=== PATIENT | female | born 1940 | race African-American/Black ===

== ENCOUNTER 2018-06-23 07:50 | Inpatient (IN) ==
--- NOTE | 2018-06-23 08:18 | Diag Imaging Result Doc PS360 ---
EXAM: CT HEAD W/O CONTRAST HISTORY: AMS, confusion TECHNIQUE: CT head without contrast COMPARISON: None. FINDINGS: No parenchymal hemorrhage. No epidural or subdural hematoma. No subarachnoid hemorrhage. There are only mild chronic microvascular ischemic changes. No mass identified on this noncontrasted exam. No hydrocephalus. No sinus opacification. IMPRESSION: No hemorrhage. Mild chronic microvascular ischemic changes. This exam was performed using automated exposure control, adjustment of mA or kV according to patient size, and/or use of iterative reconstruction technique. Electronically signed by Yakov Colbert 06/23/2018 8:15 AM
--- NOTE | 2018-06-23 08:40 | PROVIDER DOCUMENTATION ---
HPI-General Adult - General Chief Complaint: Altered Mental Status Stated Complaint: AMS Time Seen by Provider: 06/23/18 08:22 Source: EMS Unable to obtain history due to:: altered Allergies/Adverse Reactions: Patient Allergies Allergy/AdvReac Type Severity Reaction Status Date / Time No Known Allergies Allergy Verified 06/23/18 09:33 Home Medications: Home Medication List Medication Instructions Recorded Confirmed Last Taken Type Amlodipine [Norvasc] 10 mg PO DAILY 06/24/18 06/24/18 Unknown History Apixaban [Eliquis] 5 mg PO BID 06/24/18 06/24/18 Unknown History Carvedilol [Coreg] 6.25 mg PO BID 06/24/18 06/24/18 Unknown History Hydralazine HCl 25 mg PO BID 06/24/18 06/24/18 Unknown History Insulin Glargine,Hum.rec.anlog 18 unit SQ DAILY 06/24/18 06/24/18 Unknown History [Lantus Solostar] Levetiracetam 500 mg PO BID 06/24/18 06/24/18 Unknown History Losartan Potassium 100 mg PO DAILY 06/24/18 06/24/18 Unknown History Metformin HCl [Metformin HCl ER] 500 mg PO TID 06/24/18 06/24/18 Unknown History - History of Present Illness -Gen Adult Location of Pain/Injury: reports: none Pain Radiation: reports: no radiation Severity: reports: moderate Onset/Duration: reports: this morning Timing: reports: still present, improving Context/Activities at Onset: reports: none Modifying Factors: improves with: nothing Similar Symptoms Previously?: No Recently seen or treated by another doctor?: No - Diabetes Related Context Context: reports: unresponsive. denies: low blood sugar Review of Systems - Adult - REVIEW OF SYSTEMS - ADULT ROS:: unobtainable per condition Physical Exam-General - PHYSICAL EXAM-ADULT Initial Vital Signs Reviewed: Yes - CONSTITUTIONAL General Appearance: slow to respond - HEAD, EARS, NOSE, MOUTH & THROAT HENMT: normocephalic/atraumatic - NECK Neck: non-tender - RESPIRATORY Respiratory: chest non-tender, lungs clear - CARDIOVASCULAR Cardiovascular: normal peripheral pulses, regular rate, rhythm, no JVD - GASTROINTESTINAL (ABDOMEN) Abdominal Exam: normal bowel sounds, non tender, soft - LYMPHATIC Lymphatic: no adenopathy - MUSCULOSKELETAL Back Exam: normal inspection, no CVA tenderness, no vertebral tenderness Extremity: normal range of motion, non-tender - SKIN Integumentary: normal color - NEUROLOGIC Neurologic: other (moved all extremities, responsive to pain stimuli) Progress - PLAN OF CARE/RESULTS Progress/Plan/Lab Results: Vital Signs - 8 hr 06/23/18 08:18 Temperature 98.4 F Pulse Rate 105 H Respiratory Rate 20 Blood Pressure 147/97 O2 Sat by Pulse Oximetry 94 L Orders Category Date Time Status Cardiac Monitoring DIRECTED Care 06/23/18 08:24 Active Finger Stick Blood Sugar (ED) DIRECTED Care 06/23/18 08:24 Active Misc. NRSG Communication Order DIRECTED Care 06/23/18 08:24 Active Oxygen Therapy- ED Nursing DIRECTED Care 06/23/18 08:24 Active Saline Loc NOW Care 06/23/18 08:24 Active CHEST-PORTABLE [RAD] Stat Exams 06/23/18 08:[address] HEAD W/O CONTRAST [CT] Stat Exams 06/23/18 08:02 Completed CBC WITH ELECTRONIC DIFF [HEME] Stat Lab 06/23/18 08:24 Uncollected COMPREHENSIVE METABOLIC PANEL [CHEM] Stat Lab 06/23/18 08:24 Uncollected PROTIME WITH INR [COAG] Stat Lab 06/23/18 08:24 Uncollected PTT [COAG] Stat Lab 06/23/18 08:24 Uncollected TROPONIN T Stat Lab 06/23/18 08:24 Uncollected TSH Stat Lab 06/23/18 08:25 Uncollected URINALYSIS W/POSS RFLX CULT [URINALYSIS] Stat Lab 06/23/18 08:24 Uncollected URINE DRUG SCREEN Stat Lab 06/23/18 08:25 Uncollected EKG [EKG] Stat Ther 06/23/18 08:24 Ordered Result Diagrams: 06/24/18 07:15 06/24/18 07:15 Departure - Departure DIAGNOSIS: Seizure Disposition: ADMITTED INPATIENT 09 Condition: Fair - Critical Care Note This patient required my direct & personal management of CC.: No Attestation - Physician/ CATIE Attestation Patient care was provided by Advanced Practice Provider:: No The physician spent face to face time with patient:: Yes Advanced Practice Provider documentation review:: Supervising physician onsite and consulted in the evaluation and care of this patient. The physician did have a face to face encounter with the patient.
--- NOTE | 2018-06-23 08:50 | Diag Imaging Result Doc PS360 ---
EXAM: CHEST-PORTABLE HISTORY: stroke like symptoms TECHNIQUE: Chest single view COMPARISON: None. FINDINGS: The lungs are well expanded. The heart is enlarged. There is central vascular distention. The entire left lung base is not included although there is a small left effusion. IMPRESSION: Cardiomegaly with mild pulmonary edema and a small left pleural effusion. Electronically signed by Yakov Colbert 06/23/2018 8:48 AM
--- NOTE | 2018-06-23 08:59 | EKG Report ---
Test Performed on : 06/23/2018 08:49:09 AM Test Reason : Tomeka HARRISON Blood Pressure : / mmHG Vent. Rate : 101 BPM Atrial Rate : 101 BPM P-R Int : 196 ms QRS Dur : 092 ms QT Int : 360 ms P-R-T Axes : 091 -56 089 degrees QTc Int : 466 ms Sinus tachycardia. Pulmonary disease pattern Incomplete right bundle branch block Left anterior fascicular block Moderate voltage criteria for LVH, may be normal variant Abnormal ECG No previous ECGs available Unconfirmed Result
[2018-06-23 09:37] LABS: BASO# 0.01 X1000 (0.0-0.2); BASO% 0.1 % (0.0-0.8); EOS# 0.02 X1000 (0.0-0.7); EOS% 0.3 % (0.0-10.0); HEMATOCRIT 35.1 % (37.0-47.0); HEMOGLOBIN 11.5 g/dL (12.0-16.0); IMM GRAN# 0.05 X1000 (0.0-0.04); IMM GRAN% 0.6 % (0.0-0.5); LYMPH# 1.33 X1000 (1.2-3.4); LYMPH% 17.1 % (20.5-51.1); MCHC 32.8 g/dL (33-37); MCV 85.4 FL (81-99); MONO# 0.08 X1000 (0.11-0.59); MPV 8.8 FL (7.4-10.4); NEUT# 6.27 X1000 (1.4-6.5); NEUT% 80.9 % (42.2-75.2); PLT 318 X1000 (130-400); RBC 4.11 XMIL (4.2-5.4); RDW 12.6 % (11.5-14.5); WBC 7.76 X1000 (4.8-10.8)
[2018-06-23] MEDS ORDERED: KEPPRA 500 MG in NS 100 ML IV ONE ×2 (09:38→12:24)
[2018-06-23 09:41] LABS: INR 1.02; PROTIME 14.2 Seconds (11.0-16.0)
[2018-06-23 09:42] LABS: PTT 33.1 Seconds (22.3-41.8)
[2018-06-23 10:09] LABS: URINE SOURCE CATH
[2018-06-23 10:10] LABS: ALBUMIN 4.3 g/dL (3.5-5.0); CALCIUM 8.8 mg/dL (8.8-10.2); CREATININE 1.2 mg/dL (0.5-0.9); TOTAL BILIRUBIN 0.43 mg/dL (0.20-1.00); TOTAL PROTEIN 8.6 g/dL (6.3-8.3)
[2018-06-23 10:19] LABS: BILIRUBIN URINE NEGATIVE (NEGATIVE); BLOOD URINE SMALL (NEGATIVE); COLOR STRAW; GLUCOSE URINE 1000 mg/dL (NEGATIVE); KETONE URINE 10 mg/dL (NEGATIVE); LEUKOCYTES URINE NEGATIVE (NEGATIVE); NITRITE URINE NEGATIVE (NEGATIVE); PROTEIN URINE 200 mg/dL (NEGATIVE); SP GRAVITY URINE 1.003; TURBIDITY URINE CLEAR (CLEAR); UR EPITHELIAL CELLS <10 /HPF (<10); URINE BACTERIA NEGATIVE /HPF; URINE RBC <10 /HPF (<10); URINE WBC <10 /HPF (<10); UROBILINOGEN URINE NORMAL (NORMAL)
--- NOTE | 2018-06-23 10:28 | ED EKG INTERP ---
This chart was entered by Ruthann Jarrett Scribe, acting as scribe for Cecilia Lopez MD. EKG Interpretation - EKG Time of EKG reading by physician:: 08:49 EKG Read and Signed by:: Cecilia Lopez EKG Interpretation (*Must complete 3 of following elements*): Abnormal Rate: 101 Rhythm: sinus tachycardia QRS: RBB (incomplete), LVH, other (pulmonary disease pattern/LAFB) NH Interval: normal ST Wave: normal Prior EKG Comparison: no prior EKG Attestation - Physician/ CATIE Attestation Patient care was provided by Advanced Practice Provider:: No The physician spent face to face time with patient:: Yes Advanced Practice Provider documentation review:: Supervising physician onsite and consulted in the evaluation and care of this patient. The physician did have a face to face encounter with the patient. This chart was documented by the indicated scribe, (Ruthann Jarrett Scribe) and accurately reflects the services I performed and decisions made by me, Cecilia Lopez MD, as attested by the provider's signature.
[2018-06-23 11:14] LABS: UR AMPHETAMINES QUAL NONE DETECTED (NONE DETECT); UR BARBITUATES QUAL NONE DETECTED (NONE DETECT); UR BENZODIAZEPIN QUAL NONE DETECTED (NONE DETECT); UR CANNABINOIDS QUAL NONE DETECTED (NONE DETECT); UR COCAINE QUAL NONE DETECTED (NONE DETECT); UR METHADONE QUAL NONE DETECTED (NONE DETECT); UR OPIATES QUAL NONE DETECTED (NONE DETECT); UR OXYCODONE QUAL NONE DETECTED (NONE DETECT); UR PCP QUAL NONE DETECTED (NONE DETECT)
[2018-06-23] MEDS ORDERED: ATIVAN IV PRN (12:25)
[2018-06-23] MEDS ORDERED: ZOFRAN IV ONE (13:06)
[2018-06-23] MEDS ORDERED: ZOFRAN IV PRN (13:15)
--- NOTE | 2018-06-23 14:08 | HISTORY AND PHYSICAL ---
PRIMARY CARE PROVIDER: Neal Comer from [place]. CHIEF COMPLAINT: Unresponsive, possible seizure. HISTORY OF PRESENT ILLNESS: Ms. Kenyetta Nguyen is an 78-year-old - [place] female who has been staying at [facility] with family. Apparently, her nephew is also a patient here, so she is here from [place]. Apparently she has a history of tonic clonic seizures with the last one being about a year ago. Her sister is the person at the bedside providing information as the patient is still significantly postictal. Also history of hypertension, stroke , possible CHF, diabetes, and mild dementia. They said that last night they came in late, around 10 p.m. She was okay then, awake, but laying on the bed and was able to talk with no problems. She went to sleep sometime after 12 midnight. Around 6:30 this morning they woke up, she was in the bathroom, apparently she has been sitting on the commode for a good while. They went to check on her and she was nonverbal with her eyes open. She would not focus on speaker. She did have loss of bowel and bladder apparently. Ambulance was called, so she was brought here. There was no obvious witnessed seizures but she is also continuing to be nonverbal. Will make temporary eye contact but will not follow commands. She moves all extremities spontaneously and they all appear to be equal. Initial head CT was negative for any acute findings. Vital signs are stable. She has a little bit of high blood glucose. Urine drug screen is negative. We will admit her. She is supposed to be on Keppra. Her home medications have not been reconciled but she will be initiated on 1000 twice a day with some p.r.n. Ativan. We will transfer to the ICU for monitoring over night and seizure precautions. We will also get more imaging of her brain to make sure there is no acute strokes involved. PAST MEDICAL HISTORY: 1. Tonic clonic seizures with the last being a year ago, supposed to be on Keppra. 2. Hypertension. 3. CVA, uses a walker. 4. Possible congestive heart failure. 5. Diabetes mellitus type 2. 6. Mild dementia. SURGICAL HISTORY: None. SOCIAL HISTORY: Never smoked, no alcohol, no illicit drugs. Her niece lives with her at home in [place]. She has never had kids. She is . She has a nephew that is currently admitted here and this is the reason for being away from home. She uses a walker. FAMILY HISTORY: Mother had congestive heart failure. Father of old age. ALLERGIES: No known drug allergies. HOME MEDICATIONS: None listed. Family does not have any at the bedside, but she is supposed to be on Keppra. REVIEW OF SYSTEMS: Unable to obtain due to patient's status. PHYSICAL EXAMINATION: VITAL SIGNS: Temperature 98. Heart rate 98. Respiratory rate 20. Blood pressure 154/79. O2 saturation 99% on 3 liters nasal cannula. Height 5 feet 6 inches tall, 175 pounds with BMI 28.2. GENERAL: Ms. Kenyetta Nguyen is an 78-year-old -[place] female. Currently nonverbal, but has her eyes open and will not follow commands. HEENT: Atraumatic and normocephalic. Pupils are equal, round and reactive to light. Will not follow commands, so she will not perform extraocular movements. Mucous membranes are moist. NECK: Trachea midline. CARDIOVASCULAR: S1, S2, regular rate and rhythm. No rubs, gallops, or murmurs. No lower extremity edema. +2 dorsalis and radial pulses. Negative for JVD or carotid bruits. PULMONARY: Clear to auscultation with bilateral breath sounds. No accessory muscle use or work of breathing noted. GASTROINTESTINAL: Soft, nontender, nondistended. Positive bowel sounds x4. EXTREMITIES: She moves all extremities spontaneously, but not to command. It is difficult to say if they are completely equal, but they appear to be. NEUROLOGICAL: Nonverbal at this time, does not follow commands. Eyes are open , will only momentarily look at speaker, mostly keeps her eyes closed, will easily open them to verbal stimuli of name. SKIN: Warm, dry, and intact. LABORATORY DATA: White blood cells 7000, hemoglobin 11, hematocrit 35, platelet count 318. INR 1.02. PTT 33.1. Sodium 134, potassium 5, BUN 20, creatinine 1.2, glucose 221. Calcium 8.8, bilirubin 0.43, AST 17, ALT 11. Troponin less than 0.01. Albumin 4.3. TSH 1.85. Urinalysis: 200 protein, 1000 glucose, 10 ketones, small amount of blood in the urine. Urine drug screen is negative. IMAGIN. Head CT: No hemorrhage, mild chronic microvascular ischemic changes. 2. Chest x-ray: Cardiomegaly with mild pulmonary edema and a small left pleural effusion. 3. EKG: Sinus tachycardia with a ventricular rate of 101 and a QTC of 466. ASSESSMENT AND PLAN: 1. Seizure disorder with possible seizure this admit. Family thinks she takes her medication as prescribed. Apparently, she takes Keppra at home, dose is unknown. She has been started on 1000 mg twice a day IV, p.r.n. Ativan. She is still quite postictal, we will monitor in the ICU for seizures overnight. 2. History of CVA, we will do an MRI of the brain to make sure she does not have a new stroke. 3. Congestive heart failure. She has cardiomegaly and pulmonary edema on her chest x-ray. We will go ahead and get an echocardiogram. 4. Diabetes mellitus type 2. We will do pattern blood glucoses and sliding scale insulin. 5. Hypertension. Right now we will allow for some mild permissive hypertension. Her home medications have not been reconciled, but we may need to get something started if she starts getting too hypertensive. 6. Mild dementia. 7. Deep venous thrombosis prophylaxis with SCDs. Dictated by SELMA Christina for Willian Chand MD cc: SELMA Christina MD Neal Nahomi Patient seen and evaluated by me. She is presenting with seizures. I agree with the assessment and plan of the SELMA. Dr. Chand. [facility]
[2018-06-23] MEDS: NS 1,000 ML IV SCH (14:38)
--- NOTE | 2018-06-23 15:02 | Diag Imaging Result Doc PS360 ---
EXAM: MRA BRAIN W/O CONTRAST HISTORY: ams; seizures TECHNIQUE: MR angiography of the brain. MIP images obtained. COMPARISON: None. FINDINGS: MR angiography images of the [place] obtained. There is normal flow in each distal internal carotid artery. Normal filling of the anterior and middle cerebral arteries. Normal flow in the distal vertebral arteries and basilar artery. Normal flow within each posterior cerebral artery. No occlusion. No stenosis. No aneurysm. IMPRESSION: Normal MR angiography of the [place]. Electronically signed by Yakov Colbert 06/23/2018 2:59 PM
--- NOTE | 2018-06-23 15:15 | Diag Imaging Result Doc PS360 ---
EXAM: MRI BRAIN W/WO CONTRAST 06/23/2018 HISTORY: ams; seizures TECHNIQUE: T1 sagittal, axial and post gadolinium axial, T2, FLAIR, DWI axial and coronal gradient echo. COMMENT: There is mild periventricular white matter hyperintensity on T2 particularly in the occipital horns. There is no evidence of bleed or abnormal extra-axial fluid collection. There is no evidence of restricted diffusion. There is no evidence of abnormal gadolinium enhancement. IMPRESSION: No evidence of acute intracranial disease. Electronically signed by Cm Marroquin 06/23/2018 3:12 PM
[2018-06-23] MEDS: HUMULIN R SUBQ SCH ×2 (16:00→20:25)
--- NOTE | 2018-06-23 18:36 | Carotid Study ---
DATE: 06/23/2018 PROCEDURE: Carotid duplex study. REFERRING PHYSICIAN: SELMA Christina INTERPRETING PHYSICIAN: Dr. Mikey Wright. TECH: Jose. INDICATIONS: Altered mental status and seizures. NOTE: The exam was limited due to the patient being combative. OBSERVED DATA RIGHT LEFT Brachial Blood Pressure Carotid Pulse Bruits: Carotid/Sub DIAGRAM OF ULTRASOUND IMAGING R L RIGHT INT EXT INT EXT LEFT Santino (cm/s) Santino (cm/s) Subclavian 92/0 Subclavian 118/6 CCA Proximal 52/8 CCA Proximal 68/8 CCA Distal 49/0 CCA Distal 64/5 Bulb 46/10 Bulb 43/6 ICA Proximal Not recorded ICA Proximal 37/7 ICA Mid Not recorded ICA Mid 26/10 ICA Distal Not recorded ICA Distal Not recorded ECA Not recorded ECA 104/9 Vertebral Not recorded Vertebral 52/13 ICA/CCA Ratio ICA/CCA Ratio % Stenosis Unable to determine % Stenosis 0-39% FINDINGS: The right subclavian artery, common carotid artery, and carotid bulb did not appear to have any significant atherosclerotic disease. The left subclavian artery, common carotid artery, bulb, external carotid artery, and proximal to mid internal carotid artery also appeared to be without significant atherosclerotic disease. PHYSICIAN INTERPRETATION: This is a limited exam, but there is no obvious disease of the left carotid system. The right side really was not able to be examined. cc: MD Yesi Novak CRNP
[2018-06-23] MEDS: KEPPRA 1,000 MG in NS 100 ML IV SCH (20:25)
[2018-06-23 22:44] LABS: URINE SOURCE CATH
[2018-06-23 22:47] LABS: BILIRUBIN URINE NEGATIVE (NEGATIVE); BLOOD URINE SMALL (NEGATIVE); COLOR YELLOW; GLUCOSE URINE 500 mg/dL (NEGATIVE); KETONE URINE 10 mg/dL (NEGATIVE); LEUKOCYTES URINE NEGATIVE (NEGATIVE); NITRITE URINE NEGATIVE (NEGATIVE); PH URINE 6.5; PROTEIN URINE 200 mg/dL (NEGATIVE); SP GRAVITY URINE 1.011; TURBIDITY URINE CLEAR (CLEAR); UR EPITHELIAL CELLS <10 /HPF (<10); URINE BACTERIA NEGATIVE /HPF; URINE RBC <10 /HPF (<10); URINE WBC <10 /HPF (<10); UROBILINOGEN URINE NORMAL (NORMAL)
[2018-06-24] MEDS: NS 1,000 ML IV SCH ×2 (04:20→16:20)
[2018-06-24] MEDS: HUMULIN R SUBQ SCH ×4 (06:07→20:15)
--- NOTE | 2018-06-24 07:59 | EKG Report ---
Test Performed on : 06/24/2018 07:22:47 AM Test Reason : seizures Blood Pressure : / mmHG Vent. Rate : 082 BPM Atrial Rate : 082 BPM P-R Int : 170 ms QRS Dur : 086 ms QT Int : 406 ms P-R-T Axes : 071 -54 043 degrees QTc Int : 474 ms Normal sinus rhythm. Left anterior fascicular block Minimal voltage criteria for LVH, may be normal variant Abnormal ECG When compared with ECG of 23-JUN-2018 08:49, (Unconfirmed) T wave amplitude has decreased in Inferior leads Confirmed by Osman Brewster MD ([id number]) on 06/25/2018 7:08:47 AM
[2018-06-24] MEDS: KEPPRA 1,000 MG in NS 100 ML IV SCH ×2 (08:01→20:15)
[2018-06-24 08:21] LABS: BASO# 0.01 X1000 (0.0-0.2); BASO% 0.1 % (0.0-0.8); EOS# 0.02 X1000 (0.0-0.7); EOS% 0.3 % (0.0-10.0); HEMATOCRIT 33.4 % (37.0-47.0); HEMOGLOBIN 11.2 g/dL (12.0-16.0); IMM GRAN# 0.02 X1000 (0.0-0.04); IMM GRAN% 0.3 % (0.0-0.5); LYMPH# 1.57 X1000 (1.2-3.4); LYMPH% 19.8 % (20.5-51.1); MCH 28.8 PG (27-31); MCHC 33.5 g/dL (33-37); MCV 85.9 FL (81-99); MONO% 10.1 % (1.7-9.3); NEUT# 5.49 X1000 (1.4-6.5); NEUT% 69.4 % (42.2-75.2); PLT 289 X1000 (130-400); RBC 3.89 XMIL (4.2-5.4); RDW 12.6 % (11.5-14.5); WBC 7.91 X1000 (4.8-10.8)
[2018-06-24 08:37] LABS: HEMOGLOBIN A1C 9.7 % (4.8-6.0)
[2018-06-24 10:02] LABS: ALB/GLOB RATIO 1.3; ALBUMIN 3.9 g/dL (3.5-5.0); CALCIUM 8.8 mg/dL (8.8-10.2); CREATININE 1.3 mg/dL (0.5-0.9); MAGNESIUM 1.9 mg/dL (1.5-2.7); POTASSIUM 4.1 mmol/L (3.5-5.1); TOTAL BILIRUBIN 0.55 mg/dL (0.20-1.00)
[2018-06-24] MEDS ORDERED: SODIUM PHOSPHATE 30 MMOL in D5W 250 ML IV PRN (11:23)
[2018-06-24] MEDS ORDERED: HUMULIN R 100 UNIT in NS 99 ML IV SCH (11:23)
[2018-06-24] MEDS ORDERED: HUMULIN R IV ONE (11:23)
[2018-06-24] MEDS ORDERED: POTASSIUM CHLORIDE 20 MEQ/SWI 20 MEQ/100 ML IVPB IV PRN (11:23)
[2018-06-24] MEDS ORDERED: MAGNESIUM SULFATE 2 GM/S.W.I. 2 GM/50 ML IVPB IV PRN (11:23)
[2018-06-24] MEDS ORDERED: D5 NS + KCL 20 MEQ 1,000 ML IV SCH (11:23)
[2018-06-24] MEDS ORDERED: NS 1,000 ML IV SCH (11:23)
[2018-06-24] MEDS ORDERED: D50W SYRINGE IV PRN (11:23)
[2018-06-24] MEDS ORDERED: SODIUM BICARBONATE 8.4% 50 MEQ in D5W 250 ML IV PRN (11:23)
[2018-06-24] MEDS ORDERED: POTASSIUM CHLORIDE 40 MEQ/SWI 40 MEQ/100 ML IVPB IV PRN (11:23)
--- NOTE | 2018-06-24 11:37 | PROGRESS NOTE ---
DATE: 06/24/2018 SUBJECTIVE: Patient resting comfortably in bed. No recent seizure activity is reported. OBJECTIVE: Vital signs: Temperature 98.9 degrees, pulse 80, respiratory rate 16, blood pressure 139/85, oxygen saturation 100%. HEENT: Atraumatic, normocephalic. Cardiovascular: S1, S2. Respiratory: Occasional rhonchi noted. Abdomen: Soft, nontender. No masses felt. Extremities: No evidence of edema. Central nervous system: No obvious focal deficits noted. LABORATORY DATA: WBC 7.11, hematocrit 33.4, platelet count 289,000. Sodium 133, potassium 4.1, chloride 98, bicarb 24, BUN 21, creatinine 1.3. ASSESSMENT AND PLAN: 1. Seizure disorder. Continue current antiepileptic drugs, specifically Keppra, and also maintain patient on seizure precautions. 2. History of cerebrovascular accident. MRI of the brain does not show any evidence of any acute intracranial process. Will maintain patient on aspirin for secondary prevention. 3. Congestive heart failure. Chest x-ray shows evidence of cardiomegaly with mild pulmonary edema and also small left pleural effusion. Echocardiogram pending. Will maintain patient on diuretics as needed and monitor intakes and outputs, as well as daily weights. 4. Diabetes mellitus. Continue blood sugar monitor as well as sliding scale insulin. 5. Hypertension. Optimize blood pressure control. 6. Mild dementia. Aware. 7. Deep vein thrombosis prophylaxis. Sequential compression devices. cc: Willian Chand MD
--- NOTE | 2018-06-24 12:51 | CONSULTATION ---
DATE OF CONSULTATION: 06/24/2018 HISTORY OF PRESENT ILLNESS: Ms. Nguyen was reportedly found poorly responsive in the bathroom. She was brought to the hospital and seems to have recovered. This morning, she reports no recollection of the incident prompting her admission. She reports she feels recovered and back to baseline now. She denies headache. She reports having a single seizure episode approximately a year ago. She reports having workup then with no definite explanation determined for seizure. She believes that she was started on medicine for seizure control and that she takes that as directed with all current medicines supervised by sister at home. She reports no recent medication changes. DIAGNOSTIC STUDIES: Workup here includes lab showing negative urine drug screen , mild anemia, moderately elevated blood sugars. VITAL SIGNS: Vital sign record shows she is afebrile. Systolic blood pressures have ranged 110s to 160s. Heart rate has ranged 70s to 100s. PAST HISTORY: There is reported past history of hypertension, heart failure, diabetes mellitus, and possibly dementia. There is reported to be possible previous stroke. Ms. Nguyen told me she thinks she has been told that she had a stroke, but she does not report any prior event associated with transient or persistent focal neurologic deficit. She reports the single prior seizure episode was not associated with any focal neurologic feature. NEUROLOGIC EXAMINATION: On exam, she is awake, alert, attentive. She answered questions appropriately. She is partially oriented. Speech is not dysarthric. Language function is intact on brief bedside testing. Remote memory is fair. Head and neck are unremarkable. There is no meningismus. Visual marquez are full, tested grossly by confrontational finger counting. Extraocular movements are full. Facial motility is symmetric. Tongue is midline. Palate is midline. Strength is normal in the arms and legs. She did well on cerebellar testing in the limbs. There is no tremor. She reports diminished pinprick appreciation in a stocking pattern bilaterally. She reports good pinprick appreciation symmetrically over the palms. Reflexes are absent at the ankles, 1+ at the left knee, trace at the right knee, 1+ at the wrists. Plantar response is silent bilaterally. I did not test her gait. IMPRESSION: 1. Recent period of altered awareness with memory gap. Explanation is not certain. She might have had a seizure or this could have been other toxic/metabolic encephalopathy. She seems to be significantly improved now. 2. Reported past history of seizure. Her report is a single isolated seizure episode. The admission note indicates levetiracetam at home, but dose uncertain. She has received levetiracetam 1000 mg IV q.12 hours since admission. She received a single dose of lorazepam 1 mg overnight. 3. Reported baseline dementia. I did not test her cognitive function thoroughly today. 4. Clinical evidence of peripheral neuropathy, presumed diabetic neuropathy. 5. Reported history of stroke, but I do not find a definite deficit to attribute to prior stroke. RECOMMENDATIONS: I do not have any urgent suggestion. She seems clinically improved. With question of seizure, I will order EEG. Further plans will depend on that report and on her clinical course. I would continue current levetiracetam dose for now. If family provides information regarding prior dose, we can adjust to her preadmission dose. Thanks for asking Neurology to see Ms. Nguyen. cc: MD HERBIE Francis III
--- NOTE | 2018-06-24 21:34 | ECHO REPORT ---
ORDER DATE: 06/23/2018 INDICATION: Altered mental status, history of CHF. FINDINGS: 1. Right atrium appears normal in size at 3 cm. 2. Mild tricuspid regurgitation. RV systolic pressure of 51. 3. Normal RV size and systolic function. 4. Mild pulmonic insufficiency. 5. Normal left atrial size. 6. No mitral prolapse. Trace mitral regurgitation. 7. Normal LV size, end-diastolic dimension of 3.8 cm. Moderate left ventricular hypertrophy with a posterior and interventricular septal wall thickness 1.5 and 1.4 cm, respectively. Normal LV systolic function. Estimated EF is 65% to 70% with normal wall motion. 8. The aortic valve opens well. There is mild insufficiency. No stenosis. 9. The aorta appears normal in visualized segments. 10. No pericardial effusion seen. cc: MD Yesi Turner CRNP
[2018-06-25] MEDS: HUMULIN R SUBQ SCH ×4 (06:50→20:38)
[2018-06-25] MEDS: NS 1,000 ML IV SCH ×2 (08:23→20:39)
[2018-06-25] MEDS: KEPPRA 1,000 MG in NS 100 ML IV SCH ×2 (08:25→20:38)
[2018-06-25] MEDS: ASPIRIN EC PO SCH (08:30)
--- NOTE | 2018-06-25 11:19 | PROGRESS NOTE ---
DATE: 06/25/2018 Ms. Nguyen is awake and alert. She reports no more periods of altered awareness or memory gap. Her EEG showed generalized slowing, not very remarkable for age and no epileptiform discharge or other evidence of tendency to seizure. In light of her stable course and negative EEG, I would not make any changes at this time. She has tolerated levetiracetam 1000 mg IV q.12 hours since admission. I do not think we have documented that to be her preadmission dose, but it is a reasonable dose, well- tolerated here, and we can plan to discharge her on the same dose, levetiracetam 1000 mg b.i.d. by mouth. Thanks for asking Neurology to see Ms. Nguyen. I will be glad to see her again as an outpatient, if needed. cc: Jez Kellogg III, MD MTDD
--- NOTE | 2018-06-25 11:56 | EEG REPORT ---
DATE: 06/24/2018 COMMENT: This is a digitally recorded EEG done portably in the ICU on an 78-year-old patient with reported previous seizure, possible recent seizure. FINDINGS: During waking, medium amplitude 9 Hz posterior rhythm is present bilaterally, poorly sustained with uncertain reactivity to eye opening. Background contains abundant polymorphic and rhythmic theta frequencies across the frontal and central regions. There is occasional slowing into the delta range frontally while awake. Drowsing occurred briefly. Stage 2 sleep was not recorded. Hyperventilation was not done. Photic stimulation did not significantly alter the record. No definite epileptiform discharge was identified. INTERPRETATION: Abnormal electroencephalogram because of generalized slowing. CORRELATION: This is indicative of a diffuse encephalopathy and is nonspecific. The absence of epileptiform discharges on a single EEG does not exclude a clinical diagnosis of seizures. cc: Jez Kellogg III, MD
--- NOTE | 2018-06-25 12:40 | PROGRESS NOTE ---
DATE: 06/25/2018 SUBJECTIVE: The patient is awake, not in any obvious distress. OBJECTIVE: Vital signs: Temperature is 98 degrees, pulse 108, respiratory rate is 21, blood pressure is 151/86, oxygen saturation is 94%. HEENT: Atraumatic, normocephalic. Cardiovascular System: S1, S2. Respiratory System: Has evidence of good entry bilaterally. Abdomen: Soft. Nontender. No masses felt. Extremities: No evidence of edema. Central nervous system: No obvious focal deficits noted. LABORATORY DATA: Blood sugar is 449. ASSESSMENT AND PLAN: 1. Seizure disorder. Continue current antiepileptic regimen. Maintain patient on seizure precaution. Neurology is following. 2. History of cerebrovascular accident. MRI of the brain does not show any acute intracranial process. We will maintain patient on aspirin for secondary prevention. 3. Congestive heart failure. Stable. Use diuretics as needed. Monitor intakes and outputs, as well as daily weights. A 2D echo of the heart shows an estimated ejection fraction of about 65% to 70%. 4. Diabetes mellitus. Monitor blood sugar levels and maintain patient on sliding scale insulin. 5. Hypertension. Optimize blood pressure control. 6. Mild dementia. Aware. 7. Deep vein thrombosis (DVT) prophylaxis. SCD. cc: Willian Chand MD
[2018-06-26] MEDS: HUMULIN R SUBQ SCH ×6 (06:34→21:56)
[2018-06-26] MEDS: KEPPRA 1,000 MG in NS 100 ML IV SCH ×2 (08:01→21:56)
[2018-06-26] MEDS: ASPIRIN EC PO SCH (08:01)
[2018-06-26] MEDS: NS 1,000 ML IV SCH ×2 (10:15→21:56)
--- NOTE | 2018-06-26 11:36 | PROGRESS NOTE ---
DATE: 06/26/2018 Ms. Nguyen is awake, alert, attentive, cheerful, and appropriate. She has not had any further seizure or seizure-like behavior. I reviewed her history briefly at the bedside, and she does not have anything new to report today. No new suggestions from Neurology. Would continue current levetiracetam dose p.o. at discharge. I will be glad to see her as an outpatient if needed. Thanks for asking us to see Ms. Nguyen. cc: Jez Kellogg III, MD
--- NOTE | 2018-06-26 15:24 | PROGRESS NOTE ---
DATE: 06/26/2018 SUBJECTIVE: The patient is resting in bed. Not in any respiratory distress. OBJECTIVE: Vital signs: Temperature is 97.7, pulse 87, respiratory rate 19, blood pressure 141/87, oxygen saturation is 98%. HEENT: Normocephalic and atraumatic. Cardiovascular: S1, S2. Respiratory: Evidence of good air entry bilaterally. Abdomen: Soft, nontender. No masses felt. Extremities: No evidence of edema. Central nervous system: No obvious focal deficit noted. DIAGNOSTIC DATA: Blood sugar is 175. ASSESSMENT AND PLAN: 1. Seizure disorder. Continue current antiepileptic regimen. Maintain the patient on seizure precaution. Neurology is following. 2. History of cerebrovascular accident. Continue aspirin. 3. Congestive heart failure. Stable. Use diuretics as needed. Monitor I's and O's as well as daily weights. 4. Diabetes mellitus. Monitor blood sugar levels and maintain the patient on a sliding scale. 5. Hypertension. Optimize blood pressure control. 6. Mild dementia. Aware. 7. DVT prophylaxis with SCD. cc: Willian Chand MD
[2018-06-27] MEDS ORDERED: D50W SYRINGE ONE (03:31)
[2018-06-27] MEDS: NS 1,000 ML IV SCH (03:34)
[2018-06-27] MEDS ORDERED: D50W SYRINGE IV ONE ×2 (03:38→05:42)
[2018-06-27] MEDS ORDERED: D50W SYRINGE IV PRN (05:42)
[2018-06-27] MEDS: HUMULIN R SUBQ SCH ×2 (07:19→11:39)
[2018-06-27] MEDS: ASPIRIN EC PO SCH (08:34)
[2018-06-27] MEDS: KEPPRA 1,000 MG in NS 100 ML IV SCH (08:34)
--- NOTE | 2018-06-27 12:48 | DISCHARGE SUMMARY ---
ADMISSION DATE: 06/23/2018 DISCHARGE DATE: 06/27/2018 DISPOSITION: Home. FOLLOW UP: 1. PCP. 2. Dr. Kellogg. CONSULTATIONS DURING THIS ADMISSION: Neurology was consulted. The patient was seen by Dr. Kellogg. INVASIVE PROCEDURES DONE DURING THIS ADMISSION: None. IMAGING STUDIES OF SIGNIFICANCE: 1. A head CT scan showed mild chronic microvascular ischemic changes. 2. A chest x-ray showed cardiomegaly with mild pulmonary edema and small left pleural effusion. 3. MRI of the brain showed no evidence of acute intracranial pathology. 4. MRI showed normal MR angiography of the [place]. 5. A carotid Doppler ultrasound showed no obvious disease of the left carotid system. The right side really was not able to be examined. 6. Echocardiogram showed an injection fraction of 65% to 70% and wall thickness of 1.5 and 1.4 respectively consistent with moderate left ventricular hypertrophy. 7. An EEG showed diffuse encephalopathy, nonspecific but there was no epileptiform discharges. ASSESSMENT AT THE TIME OF ADMISSION: 1. Seizure disorder with possible seizures. 2. Cerebrovascular accident. 3. Congestive heart failure. 4. Diabetes mellitus. 5. Hypertension. DISCHARGE AT THE TIME OF DIAGNOSES: 1. Loss of consciousness with protracted period of recovery suspicious for seizure episode. The patient was evaluated extensively in the hospital including a CT scan, MRI, MRA, EEG, carotid Doppler, and was evaluated by Neurology. The patient did not have any more altered mentation in the hospital or seizure activity. She was restarted back on her Keppra and she is fairly stable. 2. History of cerebrovascular accidents. CT scan revealed microvascular ischemic changes. 3. Congestive heart failure with preserved ejection fraction noted. 4. Moderate left ventricular hypertrophy secondary to hypertensive heart disease. The patient has been restarted back on her blood pressure medications. 5. Diabetes mellitus with presenting A1c of 9.7. We will continue her on her insulin regimen as well as her other oral hypoglycemic agents. 6. Hypertension. We will continue home meds 7. 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 8. Generalized weakness. The patient uses a walker at home. She was evaluated over here by PT and yesterday she was able to do 200 feet with minimal assistance and also a front wheel walker. 9. History of atrial fibrillation, currently rate controlled on carvedilol and on Eliquis for stroke prophylaxis. DISCHARGE MEDICATIONS: Amlodipine 10 mg daily. Hydralazine 25 mg b.i.d. Insulin glargine 18 units subcutaneously daily. Losartan 100 mg daily. Metformin 500 mg three times per day. Apixaban 5 mg b.i.d. Keppra 500 mg b.i.d. Sitagliptin (Januvia) 50 mg daily. PRESENTING COMPLAINT: Unresponsiveness. HISTORY OF PRESENTING COMPLAINT: Ms. Nguyen is an 78-year-old female with a history of tonic clonic seizures about 3 years ago, CVA and uses a walker, possible congestive heart failure, and diabetes who came to the Emergency Department after she checked into a hotel and she just became unresponsive. The family members were there and there was no mention of seizures. However, according to the report it looks Ms. Nguyen did have sphincter incontinence. She became unresponsive yet staring, nonverbal with eyes open. The patient was brought to the Emergency Room where she was evaluated and admitted to the ICU. HOSPITAL COURSE: Ms. Nguyen was admitted to the [facility] ICU. She was evaluated initially by Neurology. Multiple scans were done. Please review the details in the chart , but for the most part everything was unremarkable for acute pathology. The patient also had an EEG which did not show any epileptiform discharges. She was started back on Keppra and her other comorbidities were addressed accordingly. Ms. Nguyen was also seen by Physical Therapy. She was able to do 200 feet with a front wheel walker and that is what she normally uses at home. This morning she is awake, she is alert, she is very conversational, and a very sweet elderly lady. She denies any complaints. PHYSICAL EXAMINATION: Vital Signs: Blood pressure is 156/98, pulse 93, respirations 17, and temperature 97.7. General: Ms. Nguyen is an 78-year-old female. She is in bed. No distress and she is not on any oxygen supplementation. She is saturating 97 % on room air. HEENT: Mucosa is pink and moist. Anicteric and acyanotic. Neck: Supple. Chest: Clear to auscultation. Cardiovascular: Irregularly irregular but rate controlled. There were no murmurs, no rubs, and no gallops. Abdomen: Soft and nontender. PAINT FORMULATOR: The patient was awake, alert, and very conversational. She moves all extremities and follows commands. There was no lab work for this morning but her glucose is 172. Ms. Nguyen is fairly stable for discharge and she is now advised to follow up with her primary care doctor and also with Dr. Kellogg. I have restarted her home medications. We will discontinue the Cruz catheter this morning. All the discharge instructions have been discussed with Ms. Nguyen and she voiced understanding. Time spent for discharge was 36 minutes. cc: MD Jez Lai III, MD HERBIE Nunez
[2018-06-27] MEDS ORDERED: GLUCOPHAGE XR PO SCH (13:00)
[2018-06-27 14:19] VITALS: BP 152/96
[2018-06-27] MEDS ORDERED: APRESOLINE PO SCH (21:00)
[2018-06-27] MEDS ORDERED: ELIQUIS PO SCH (21:00)
[2018-06-27] MEDS ORDERED: KEPPRA PO SCH (21:00)
[2018-06-27] MEDS ORDERED: COREG PO SCH (21:00)
[2018-06-28] MEDS ORDERED: BASAGLAR SUBQ SCH (09:00)
[2018-06-28] MEDS ORDERED: COZAAR PO SCH (09:00)
[2018-06-28] MEDS ORDERED: JANUVIA PO SCH (09:00)
[2018-06-28] MEDS ORDERED: NORVASC PO SCH (09:00)
== END 2018-06-27 14:20 | disposition home health service (06) | DRG 101 ==
LOC: SUPCPDRO → ED 07:50 → EDIPHOLD 15:42 → SUATTDRO 15:42 → ICU 17:19 → 3N 06-25 18:55 → ICU 06-25 19:21
PROVIDERS: ATTEND Internal Medicine
CPT/HCPCS: 70450; 70544; 70553; 71010; 71045; 80053; 80101; 80301; 80307; 80324; 80345; 80346; 80353; 80358; 80361; 80365; 81001; 82550; 82948; 83036; 83735; 83992; 84443; 84484; 85025; 85610; 85730; 93005; 93010; 93306; 93880; 94761; 95816; 96365; 96375; 97116; 97162; 97530; 99285; A9270; A9579; G0431; G0434; G0479; G0480; J1953; J2060; J2405; J7030; XXXXX